=== PATIENT | male | born 1965 | race Two or more races ===

== ENCOUNTER 2024-01-22 18:25 | Emergency (ER) | payer OTHER ==
[~2024-01-22] VITALS: Ht 182.9 cm; Wt 111.1 kg
[2024-01-22] MEDS ORDERED: TOPROL XL50 M1 (18:38)
[2024-01-22] MEDS ORDERED: NORVASC10 MG PO (18:38)
[2024-01-22] MEDS ORDERED: LOSARTAN POTAS100 MG PO (18:38)
[2024-01-22] MEDS ORDERED: METFORMIN HCL850 M1 PO (18:39)
[2024-01-22] MEDS ORDERED: ADULT LOW DOSE81 M1 PO (18:39)
[2024-01-22] MEDS ORDERED: ATORVASTATIN CA10 MG PO (18:39)
[2024-01-22] MEDS ORDERED: CLINDAMYCIN PHOSPHATE 150 MG/ML (600mg) IM ONE (19:45)
[2024-01-22] MEDS ORDERED: TETANUS & DIPHTHERIA TOX,ADULT 0.5 ML VIAL IM ONE (19:45)
[2024-01-22] MEDS ORDERED: CLINDAMYCIN PHOSPHATE 150 MG/ML (300mg) ONE (19:50)
[2024-01-22] MEDS ORDERED: TETANUS DIPHTHERIA TOX. ADSOR 5 ML VIAL IM ONE (19:51)
== END 2024-01-22 19:58 | disposition home or self-care (01) ==
LOC: ER 18:26
DX: S91.342A Puncture wound with foreign body, left foot, initial encounter (principal); W45.0XXA Nail entering through skin, initial encounter; W22.8XXA Striking against or struck by other objects, initial encounter; W26.8XXA Contact with other sharp object(s), not elsewhere classified, initial encounter; Y93.89 Activity, other specified; Y92.89 Other specified places as the place of occurrence of the external cause